=== PATIENT | male | born 1970 | race Caucasian/White ===

== ENCOUNTER → 2022-02-20 | Outpatient (CLI) | payer OTHER ==
[~2022-02-20] MED LIST: AMLODIPINE BESYL5 MG PO; ATORVASTATIN CA10 M1 PO; BACTRIM DS 8001 TA1 PO; DIOVAN320 MG PO; EFFER-K20 MEQ PO; EPIPEN 2-PAK1 MG/ML MR; GLIMEPIRIDE4 M1 PO; GOOD SENSE ASPI81 M1 PO; JARDIANCE25 MG PO; METFORMIN850 MG PO; PEPCID20 MG PO; PREDNISONE10 MG PO; PROPAFENONE HY150 MG PO; PROTONIX TR40 MG PO; PROTONIX40 MG PO; TRAJENTA PO; TRESIBA FL100 UNIT/1 SQ; VALSARTAN-HCTZ1 EAC3 PO; VITAMIN D3125 MCG PO; XARELTO20 M1 PO
== END | disposition home or self-care (01) ==
LOC: CARD 01:59
PROVIDERS: ATTEND Internal Medicine Cardiovascular Disease
DX: I20.9 Angina pectoris, unspecified (principal)